=== PATIENT | female | born 1995 | race Caucasian/White ===

== ENCOUNTER → 2020-01-26 12:46 | Outpatient (CLI) | payer OTHER, SELFPAY ==
--- NOTE | ~2020-01-26 | US_ITS ---
EXAMINATION: US OB >= 14 weeks Fetus DATE: 01/26/2020 13:22 INDICATION: survey TECHNIQUE: Multiple obstetric sonographic images performed. FINDINGS: No prior studies for comparison. There is a single living fetus in breech presentation. The placenta is fundal without placenta previ a. Amniotic fluid volume is subjectively normal. cardiac activity and movement is noted with a heart rate of 148 beats per minute. The following anatomy was identified as normal: 4 chamber heart 3 vessel cord cord insertion kidneys urinary bladder stomach diaphragm ventricles cisterna magna cerebellum Suboptimal visualization of the spine and ventricular outflow tracts due to position and gestational age. The following biometric data were obtained: BPD: 43mm corresponds to gestational age 18 weeks 6 days. Head circumference: 156 mm corresponds to gestational age 18 weeks 4 days. Abdominal circumference: 130 mm corresponds to gestational age 18 weeks 4 days. Femur length: 26 mm corresponds to gestational age 17 weeks 5 days. Head circumference to abdominal circumference ratio: 1.2 (normal range for expected gestational age i s 1.08-1.27). Estimated weight: 230 grams +/- 35 grams using Hadlock method. IMPRESSION: 1: Single living intrauterine with an estimated gestational age of 18weeks 3days by current ultrasound measurements, with an EDC of 06/25/2020 in breech presentation. 2. Limited survey for evaluation of spine and ventricular outflow tracts due to lie and gestat ional age. Otherwise, unremarkable survey. Reviewed, dictated and finalized at location A. IMPRESSION: 1: Single living intrauterine with an estimated gestational age of 18 weeks 3days by current ultrasound measurements, with an EDC of 06/25/2020 in br eech presentation. 2. Limited survey for evaluation of spine and ventricular outflow tracts due t o lie and gestational age. Otherwise, unremarkable survey.
== END ==
PROVIDERS: Visit Provider Obstetrics & Gynecology Gynecology
DX: Z36.9 Encounter for antenatal screening, unspecified (principal); Z3A.18 18 weeks gestation of pregnancy
CPT/HCPCS: 76805

== ENCOUNTER → 2020-02-23 11:02 | Outpatient (CLI) | payer MEDICAID, SELFPAY ==
--- NOTE | ~2020-02-23 | US_ITS ---
EXAMINATION: US OB follow up DATE: 02/23/2020 11:31 INDICATION: Nonvisualized anatomy, second trimester TECHNIQUE: Real-time ultrasound of the pelvis was performed. The interpreting radiologist was not pre sent for the study. COMPARISON: 01/26/2020 FINDINGS: There is a single living fetus in vertex presentation. The placenta is fundal/posterior and 7.2 cm from the internal cervical os. cardiac activity and movement are noted. hea rt rate is 149 beats per minute (bpm). The amniotic fluid index is subjectively normal. The spi ne and heart appear normal. The following biometric data were obtained: Biparietal diameter (BPD): 5.5 cm; head circumference (HC): 21.3 cm; abdominal circumference (AC): 17 .1 cm; femur length (FL): 3.8 cm. The head circumference to abdominal circumference ratio is greater than two standard deviations above the mean. These measurements are otherwise concordant. Estimated weight is 499 g +/- 74 g, which correlates with the 41st percentile when 06/25/2020 is used as estimated date of delivery. As single measurements, these parameters are each equal to the following estimated gestational ages w ith ranges of +/- 2 standard deviations: BPD: 23 weeks 5 days ( 21 weeks 0 days - 24 weeks 3 days). HC: 23 weeks 3 days ( 22 weeks 0 days - 24 weeks 6 days). AC: 22 weeks 0 days ( 20 weeks 0 days - 24 weeks 1 days). FL: 22 weeks 3 days ( 20 weeks 5 days - 24 weeks 2 days). estimated gestational age based solely on measurements from this exam is 22 weeks 5 days +/- 1 weeks 4 days. IMPRESSION: 1. Single living fetus in vertex presentation. 2. Estimated weight is 499 g +/- 74 g, which correlates with the 41st percentile when 06/25/2020 is used as estimated date of delivery. 3. Head circumference to abdominal circumference ratio greater than two standard deviations above the mean. 4. Normal heart and spine visualized. Reviewed, dictated and finalized at location A. IMPRESSION: 1. Single living fetus in vertex presentation. 2. Estimated weight is 499 g +/- 74 g, which correlates with the 41st per centile when 06/25/2020 is used as estimated date of delivery. 3. Head circumference to abdominal circumference ratio greater than two standar d deviations above the mean. 4. Normal heart and spine visualized.
== END ==
PROVIDERS: PCP Family Medicine Adolescent Medicine; Visit Provider Obstetrics & Gynecology Gynecology
DX: Z36.2 Encounter for other antenatal screening follow-up (principal); Z3A.22 22 weeks gestation of pregnancy
CPT/HCPCS: 76816

== ENCOUNTER 2020-03-22 11:39 | Outpatient (CLI) | payer OTHER, SELFPAY ==
--- NOTE | ~2020-03-22 | US_ITS ---
EXAMINATION: US OB follow up DATE: 03/22/2020 12:26 INDICATION: growth assessment during second trimester TECHNIQUE: Real-time ultrasound of the pelvis was performed. The interpreting radiologist was not pre sent for the study. COMPARISON: 02/23/2020 FINDINGS: There is a single living fetus in vertex presentation. The placenta is fundal/posterior. Fe chava cardiac activity and movement are noted. heart rate is 155 beats per minute (bpm). Th e amniotic fluid index is 11.4 cm which is normal. The following biometric data were obtained: Biparietal diameter (BPD): 6.6 cm; head circumference (HC): 23.8 cm; abdominal circumference (AC): 21 .4 cm; femur length (FL): 4.7 cm. These measurements are concordant. Estimated weight is 873 g +/- 131 g, which correlates with the 17th percentile when 06/24/2020 i s used as estimated date of delivery. As single measurements, these parameters are each equal to the following estimated gestational ages w ith ranges of +/- 2 standard deviations: BPD: 26 weeks 6 days +/- 2 weeks 1 days. HC: 25 weeks 6 days +/- 2 weeks 0 days. AC: 26 weeks 0 days +/- 2 weeks 1 days. FL: 25 weeks 6 days +/- 2 weeks 1 days. estimated gestational age based solely on measurements from this exam is 26 weeks 1 days +/- 1 weeks 6 days. IMPRESSION: 1. Single living fetus in vertex presentation. 2. Estimated weight is 873 g +/- 131 g, which correlates with the 17th percentile when 0 is used as estimated date of delivery. Reviewed, dictated and finalized at location A. IMPRESSION: 1. Single living fetus in vertex presentation. 2. Estimated weight is 873 g +/- 131 g, which correlates with the 17th pe rcentile when 06/24/2020 is used as estimated date of delivery.
== END 2020-03-22 11:40 | disposition home or self-care (01) ==
PROVIDERS: PCP Family Medicine Adolescent Medicine; Visit Provider Obstetrics & Gynecology Gynecology
DX: Z36.2 Encounter for other antenatal screening follow-up (principal); Z3A.26 26 weeks gestation of pregnancy
CPT/HCPCS: 76816

== ENCOUNTER 2020-06-17 05:00 | Inpatient (IN) | payer OTHER, SELFPAY ==
[2020-06-17] VITALS (144 sets, daily range): BP systolic 85–137; BP diastolic 43–113; PULSE 62–142; RESP 16–20; TEMP 36.1–37.1; O2SAT 97–100; BMI 23.9
--- NOTE | 2020-06-17 05:21 | LDADM ---
This patient, Jacki Richards, was admitted to Labor/Delivery/Recovery 106 on 06/17/20 at 05:00. Plans for labor, pain management and were discussed with patient. Patient/family oriented to hospital policies and general routines including ID bracelet, bed and alarms, visiting hours, pain management, procedures, bathroom and other care routines, personal items, smoking policy, room service/diet and guest tray routines, infant security routines, and visiting hours. Patient/Family are encouraged to report perceived risks to care and to ask questions if they do not understand what they are told or what they should do. See OBIX for further documentation.
--- NOTE | 2020-06-17 05:40 | WPDANESEPP ---
Anes - Eval Pre Procedure Procedure: Labor epidural Date/Time: 06/17/20 05:40 Surgeon: Camilla Preop Diagnosis: Abd pain with contractions Pre Op Diagnosis: IOL Patient Data Age: 24 Gender: F Height: 5 ft 8 in Weight: 71.4 kg Last Vital Signs Temp 97.9 F 06/17/20 05:17 Pulse 84 06/17/20 05:17 BP 128/66 06/17/20 05:17 Allergies Allergy/AdvReac Type Severity Reaction Status Date / Time Penicillins Allergy Hives Verified 05/25/20 13:36 Home Medications Medication Instructions Recorded Confirmed Type PNV cmb#95-ferrous fumarate-FA 1 tablet PO DAILY 05/25/20 06/17/20 History [] ergocalciferol (vitamin D2) 06/17/20 History Patient hx anesthesia problems: none Family hx anesthesia problems: none PMFSH Past Medical History Medical History Family History Family History Mother Hypertension Social History Social History Smoking status: Never smoker Substance use: never Gender identity (if verbalized by the patient): Female Spiritual care concerns: No Exam Day of Procedure 06/17/20 05:40 Patient weight: normal Airway: Mallampati scale class II Neurological: alert and oriented
[2020-06-17] MEDS: OXYTOCIN 30 UNITS/NS 500 ML 30 UNITS/500 ML BAG 6 UNITS IV CONT (05:51)
[2020-06-17] MEDS: LACTATED RINGERS 1,000 ML 125 ML IV CONT ×3 (05:52→14:22)
[2020-06-17 06:10] LABS: Basophils Absolute Auto 0.1 K/mm3 (0.0-0.1); Basophils Percent Auto 0.4 % (0.2-1.2); Eosinophils Absolute Auto 0.2 K/mm3 (0-0.3); Eosinophils Percent Auto 1.5 % (0-4.4); Hematocrit 36.4 % (37.0-47.0); Hemoglobin 12.2 g/dL (12.0-15.0); Immature Granulocyte Percent A 0.8 % (0-0.5); Lymphocytes Absolute Auto 2.68 K/mm3 (0.9-3.2); Lymphocytes Percent Auto 21.6 % (18.3-44.2); Mean Corpuscular HGB Conc 33.5 g/dl (32-36); Mean Corpuscular Hemoglobin 31.9 pg (26-34); Mean Corpuscular Volume 95.3 fl (80-100); Mean Platelet Volume 11.9 fl (7.4-10.4); Monocytes Absolute Auto 0.9 K/mm3 (0.1-0.6); Monocytes Percent Auto 7.2 % (2.6-8.5); Neutrophils Absolute Auto 8.5 K/mm3 (1.3-6.7); Neutrophils Percent Auto 68.5 % (45.5-73.1); Platelet Count Result 174 k/mm3 (150-375); Red Blood Count 3.82 M/mm3 (4.2-5.4); Red Cell Distribution Width 12.2 % (11.5-14.5); White Blood Count 12.4 K/mm3 (4.5-10.0)
[2020-06-17] MEDS: ONDANSETRON INJ 4 MG/2 ML VIAL IV PUSH (06:27)
--- NOTE | 2020-06-17 10:20 | WPDOBADMIT ---
Obstetrics - Admit Note Admission Note: record reviewed. No pertinent additions to the history and/or any subsequent changes in the physical findings that are not consistent with the expected course of the were found. Additions to the history and/or subsequent changes in the physical findings follow. None.Here for MIL at 39 wks. 3-4/90/-1 AROM with clear fluid. FHTs reactive
[2020-06-17] MEDS: SODIUM CHLORIDE 0.9% IV 300 ML 600 ML I-UTERINE (13:46)
--- NOTE | 2020-06-17 17:47 | P.PCNOB_ITS ---
OB - Delivery Note Procedure Delivery date: 06/17/20 Procedure: events: Labor Induction Intrapartal events: Extended Bradycardia (post epidural and with onset of pushing) Induction method: AROM and per pitocin protocol Delivery monitor: external FHT and internal uterine Route of delivery: Laceration Description: Periurethral (left 2nd degree extending into vagina and 1st degree right) Delivery repair: vicryl (3-0 ) Specimen: Yes (placenta) Quantitative Blood Loss: 100 Anesthesia type: Epidural Disposition: floor Narrative: repetitive deep variable with slow return with pushing; I was called in at 17:08 pm for delivery [place] Baby Date of : 06/17/20 Weeks of gestation at delivery: 39 Infant gender: Male presentation: vertex position: Left Occiput Anterior Placenta delivery description: Spontaneous cord vessel description: 3 Vessels score one minute: 9 score five minutes: 9 Narrative: meconium behind 's body noted when body delivered
--- NOTE | 2020-06-17 17:51 | P.DS_ITS ---
DS: Admitting Diagnosis Admitting Diagnosis Admitting Diagnosis: IOL at 39 wks DS: Discharge Diagnosis Discharge Diagnosis (1) 39 weeks gestation of : Code(s): Z3A.39 - 39 weeks gestation of Status: Acute (2) (normal spontaneous vaginal delivery): Code(s): O80 - Encounter for full-term uncomplicated delivery Status: Acute OB - DS: Summary OB Procedures : Ultrasound OB Procedures Intrapartum: Spontaneous Vag Delivery OB Procedures: : None Peripartum Data Delivery Method: Natural Vaginal Laceration Description: Periurethral complications: none Status at Discharge Functional status at discharge: independent ambulation Overall status at discharge: patient is progressing back to baseline Time Spent with Patient Time attestation: Total time spent providing and/or coordinating discharge services: DS: Data Data Completed and Pending Pending studies at discharge: Pending at discharge 06/17/20 17:43 Surgical [PTH] Routine Labs on day of discharge: Labs from last 24 hours 06/17/20 06/17/20 06/17/20 05:35 05:35 05:35 WBC 12.4 H RBC 3.82 L Hgb 12.2 Hct 36.4 L MCV 95.3 MCH 31.9 MCHC 33.5 RDW 12.2 Plt Count 174 MPV 11.9 H Immature Gran % (Auto) 0.8 H Neut % (Auto) 68.5 Lymph % (Auto) 21.6 [place] % (Auto) 7.2 Eos % (Auto) 1.5 Baso % (Auto) 0.4 Lymph # (Auto) 2.68 [place] # (Auto) 0.9 H Eos # (Auto) 0.2 Baso # (Auto) 0.1 Abs Immat Gran (auto) 0.10 H Absolute Neuts (auto) 8.5 H Absolute Nucleated RBC 0.0 Nucleated RBC % 0.0 RPR Pending Blood Type O Positive Antibody Screen Negative Discharge Plan Discharge Attending physician on discharge: Kari Sampson Discharging Clinician: Kari Sampson Anticipated Discharge Date/Time: 06/19/20 08:52 Patient Disposition: Home, Self-Care Activity: may shower and pelvic rest Diet: regular Patient Instructions: Antibiotic Form Stand Alone Forms: General Discharge Information Follow-up/Referrals: Kari Sampson MD [Physician] - 6 Weeks Discharge Medications: New norethindrone-e.estradiol-iron [Minastrin 24 Fe] 1 mg-20 mcg(24) /75 mg (4) tablet,chewable 1 tablet PO DAILY Qty: 28 RF: 5 Continued PNV cmb#95-ferrous fumarate-FA [] 28 mg iron- 800 mcg Tablet 1 tablet PO DAILY RF: 0 ergocalciferol (vitamin D2) 1,250 mcg (50,000 unit) capsule 1,250 mcg PO BID RF: 0 Date of admission: 06/17/20 05:00 Primary Care Provider: Terry Ramirez Admitting Provider: Kari Sampson Attending physician on admission: Kari Sampson Condition: Stable
[2020-06-17] MEDS: OXYTOCIN 30 UNITS/NS 500 ML 30 UNITS/500 ML BAG 125 UNITS IV CONT (17:58)
[2020-06-17] MEDS: WITCH HAZEL 40 PADS 1 PAD TOPICAL (18:35)
[2020-06-17] MEDS: BENZOCAINE 20% AER SPR (*SP) 56 GM CAN 1 SPRAY TOPICAL (18:35)
--- NOTE | 2020-06-17 19:50 | OBPPTRN ---
Patient transferred to post room #290 via wheelchair. Support person present. Oriented to unit, room, information board, rooming in, admission packet and security measures. Patient verbalizes understanding.
[2020-06-18 04:37] LABS: Hematocrit 31.4 % (37.0-47.0); Hemoglobin 10.9 g/dL (12.0-15.0)
[2020-06-18 08:20] VITALS: BP 114/65; PULSE 69; RESP 20; TEMP 36.5
--- NOTE | 2020-06-18 11:25 | PM.OBPNVD ---
OB - PN: Subj Subjective Date/time seen: 06/18/20 11:25 Patient comments: no complaints and pain well controlled baby status: doing well OB - PN: Obj Data Labs CBC & Chem 7: 06/18/20 04:27 Labs: Laboratory Results - last 24 hr 06/18/20 04:27 Hgb 10.9 L Hct 31.4 L OB - PN A/P Plan day: 1 Plan: routine care Time Spent With Patient Time: Total time spent is greater than 50% in coordination of care (as documented) at patient's floor/unit and/or counseling patient: Exam : Bimanual exam- vagina & uterus: other (Uterus firm, nt @U)
[2020-06-18] MEDS: ACETAMINOPHEN 325 MG TABLET 650 MG PO (13:25)
[2020-06-18 20:00] VITALS: BP 100/51; PULSE 81; RESP 16; TEMP 36.6; O2SAT 98
[2020-06-18 22:13] LABS: Rapid Plasma Reagin Non-Reactive (NonReactive)
[2020-06-19 07:40] VITALS: BP 105/63; PULSE 59; RESP 18; TEMP 36.4
--- NOTE | 2020-06-19 08:20 | PC.NURSE ---
PT introductions made and plan of care discussed per post , pain management, bottle feeding, daily care activities and pending discharge to home. PT verbalized understanding of such care.
--- NOTE | 2020-06-19 08:28 | PM.OBPNVD ---
OB - PN: Subj Subjective Date/time seen: 06/19/20 08:28 Patient comments: no complaints baby status: doing well OB - PN: Obj Data Labs CBC & Chem 7: 06/18/20 04:27 Labs: Laboratory Results - last 24 hr 06/17/20 05:35 RPR Non-reactive OB - PN A/P Plan day: 2 Plan: routine care, discharge home, follow up 6 weeks and other (plan Loestrin 24) Time Spent With Patient Time: Total time spent is greater than 50% in coordination of care (as documented) at patient's floor/unit and/or counseling patient: Exam : Bimanual exam- vagina & uterus: other (Uterus firm, nt @U)
[2020-06-19] MEDS: IBUPROFEN 600 MG TABLET PO (09:58)
[2020-06-19] MEDS: MULTIVIT/MIN/PREN/FOL AC/IRON TABLET 1 TAB PO (09:58)
[2020-06-19] MEDS: DOCUSATE SODIUM 100 MG CAPSULE PO (09:58)
[2020-06-19 10:00] VITALS: PULSE 59; RESP 18; O2SAT 98
--- NOTE | 2020-06-19 12:00 | PC.NURSE ---
Patient viewed the discharge video Mother & Baby Care, The First Two Weeks . Patient was given the opportunity and encouraged to ask questions. Patient verbalized understanding of information shared and has been given the mother/baby guide for home reference.
[2020-06-19] MEDS: MEASLES,MUMPS,RUBELLA VACCINE 0.5 ML VIAL SUB-Q (13:00)
--- NOTE | 2020-06-19 13:00 | PC.NURSE ---
PT received discharge instructions per protocol and verbalized understanding of such instructions.
[2020-06-19] MEDS: WITCH HAZEL 40 PADS 1 PAD TOPICAL (13:09)
[2020-06-19] MEDS: BENZOCAINE 20% AER SPR (*SP) 56 GM CAN 1 SPRAY TOPICAL (13:09)
--- NOTE | 2020-06-19 13:38 | PC.NURSE ---
PT discharged to home ambulatory accompanied by significant other and to waiting car. Follow up appts confirmed
[2020-06-21 10:02] VITALS: BP 113/72; PULSE 95; RESP 16; TEMP 36.8; O2SAT 98
== END 2020-06-19 13:38 | disposition home or self-care (01) | DRG 560 ==
LOC: ANHLDR 17:53 → ANHOB2 20:20
PROVIDERS: Admitting Provider Obstetrics & Gynecology Gynecology; PCP Family Medicine Adolescent Medicine; Visit Provider Obstetrics & Gynecology Gynecology
DX: O98.32 Other infections with a predominantly sexual mode of transmission complicating childbirth (principal); Z37.0 Single live birth; Z3A.39 39 weeks gestation of pregnancy; A56.8 Sexually transmitted chlamydial infection of other sites; O36.8330 Maternal care for abnormalities of the fetal heart rate or rhythm, third trimester, not applicable or unspecified; O70.1 Second degree perineal laceration during delivery; O77.0 Labor and delivery complicated by meconium in amniotic fluid
CPT/HCPCS: 36415; 85014; 85018; 85025; 86592; 86850; 86900; 86901; 88307; 90710; A9270; J2405; J2590; J2795; J7030; J7120

== ENCOUNTER 2022-11-01 09:10 | Outpatient (CLI) | payer OTHER, SELFPAY ==
--- NOTE | ~2022-11-01 | US_ITS ---
US soft tissue abdomen 11/01/2022 09:37 Indication: Abdominal and pelvic swelling for 2 years since . Procedure: High-resolution Limited ultrasound of the anterior abdominal soft tissues Comparison: No prior studies for comparison. Findings: Normal heterogeneous soft tissues in the anterior abdominal wall in the area of palpable co ncern. No discrete mass or hernia is identified. Impression: 1: Unremarkable soft tissue ultrasound of the anterior abdomen. Reviewed, dictated and finalized at location B. Impression: 1: Unremarkable soft tissue ultrasound of the anterior abdomen.
== END 2022-11-01 09:11 | disposition home or self-care (01) ==
PROVIDERS: PCP Family Medicine Adolescent Medicine; Visit Provider Physician Assistant
DX: R19.00 Intra-abdominal and pelvic swelling, mass and lump, unspecified site (principal)
CPT/HCPCS: 76705